=== PATIENT | female | born 1950 | race Caucasian/White ===

== ENCOUNTER → 2018-03-29 | Outpatient (CLI) | payer MEDICARE, OTHER | END | disposition home or self-care (01) | LOC: KCIC MRI 11:45 | DX: S46.012A Strain of muscle(s) and tendon(s) of the rotator cuff of left shoulder, initial encounter (principal); X58.XXXA Exposure to other specified factors, initial encounter; Y93.89 Activity, other specified; Y92.89 Other specified places as the place of occurrence of the external cause; Y99.8 Other external cause status | CPT/HCPCS: 73221 ==

== ENCOUNTER → 2018-12-09 | Outpatient (CLI) | payer MEDICARE, OTHER ==
--- NOTE | 2018-12-09 14:03 | KCIC ---
MR of the left shoulder Indication: Left shoulder pain after rotator cuff repair April 21, 2018. Shoulder pops.. Comparison: None are available. Technique: Standard multiplanar sequences are obtained. Findings: Artifact: No significant image degradation. Acromioclavicular joint: Degenerative changes, with small undersurface osteophytes. Rotator cuff: * Supraspinatus-infraspinatus tendon: There has been prior rotator cuff repair with anchor screws at the humeral head. Full-thickness defect of the supraspinatus tendon measures 10 mm AP diameter by 15 mm wide. * Subscapularis tendon: Intact * Muscle bulk: Mild volume loss * Subacromial subdeltoid bursa: Trace effusion. Fluid: No significant glenohumeral effusion. Glenohumeral cartilage: No acute defect or advanced DJD. Labrum: Tear of the posterosuperior labrum. Biceps tendon: Intact Bones: No lesion or acute fracture. Soft tissue: No acute findings.. Impression: 1. Full-thickness tear of the supraspinatus tendon at the critical zone. Measures 10 x 15 mm. 2. Posterosuperior labral tear. Electronically signed by: Ab Stephenson MD (12/09/2018 1:57 PM) [id number]
== END | disposition home or self-care (01) ==
LOC: KCIC MRI 11:28
PROVIDERS: ATTEND Orthopaedic Surgery
DX: S43.492A Other sprain of left shoulder joint, initial encounter (principal); M75.102 Unspecified rotator cuff tear or rupture of left shoulder, not specified as traumatic; M25.712 Osteophyte, left shoulder; X58.XXXA Exposure to other specified factors, initial encounter; Y93.89 Activity, other specified; Y92.89 Other specified places as the place of occurrence of the external cause; Y99.8 Other external cause status
CPT/HCPCS: 73221

== ENCOUNTER → 2021-11-26 | Outpatient (CLI) | payer MEDICARE, OTHER ==
--- NOTE | 2021-11-26 12:17 | KCIC ---
EXAM: MRI RIGHT SHOULDER WITHOUT CONTRAST INDICATION: Chronic right shoulder pain, rotator cuff tear. Old injury 30 years ago. COMPARISON: None TECHNIQUE: Multiplanar, multisequence imaging of the right shoulder without contrast. FINDINGS: ROTATOR CUFF: The supraspinatus tendon is diffusely thinned, greatest anteriorly where there is high- grade deep partial-thickness articular and bursal sided tearing and a suspected full-thickness compon ent far anteriorly. Milder partial thickness articular sided tearing extends throughout the posterior supraspinatus tendon and into the anterior infraspinatus tendon. There is mild infraspinatus tendino damian. Anterior supraspinatus tendon fibers are mildly retracted to the mid humeral head. The subscap ularis and teres minor tendons are intact. LABRUM: There is degenerative superior and posterior super ior labral tearing.. BICEPS TENDON: There is intra-articular biceps tendinopathy with a longitudinal split tear as it ente rs the groove. ACROMIOCLAVICULAR JOINT: Mild acromioclavicular degenerative joint disease with subchondral cysts and edema. Mild capsular hypertrophy.. GLENOHUMERAL JOINT: No full-thickness cartilage defects. Alignment is normal. Marrow signal is normal . OTHER: Large joint effusion and fluid in the subacromial-subdeltoid bursa. IMPRESSION: 1. High-grade tear of the anterior supraspinatus tendon with suspected small full-thickness component far anteriorly. Milder partial thickness tearing of the posterior supraspinatus tendon and anterior infraspinatus tendon. 2. Tendinopathy and longitudinal split tear of the biceps tendon. Degenerative labral tear. 3. Joint effusion and fluid in the subacromial subdeltoid bursa. Electronically signed by: Kirsten Keith MD (11/26/2021 12:14 PM) [id number]
== END ==
LOC: KCIC MRI 10:03
PROVIDERS: ATTEND Orthopaedic Surgery
DX: S46.211A Strain of muscle, fascia and tendon of other parts of biceps, right arm, initial encounter (principal); S43.491A Other sprain of right shoulder joint, initial encounter; M19.011 Primary osteoarthritis, right shoulder; M75.121 Complete rotator cuff tear or rupture of right shoulder, not specified as traumatic; M25.411 Effusion, right shoulder; M75.51 Bursitis of right shoulder; X58.XXXA Exposure to other specified factors, initial encounter; Y93.89 Activity, other specified; Y92.89 Other specified places as the place of occurrence of the external cause; Y99.8 Other external cause status
CPT/HCPCS: 73221

== ENCOUNTER → 2022-04-15 | Outpatient (CLI) | payer MEDICARE ==
--- NOTE | 2022-04-15 12:29 | RAD ---
EXAMINATION: MRI RIGHT SHOULDER WITHOUT IV CONTRAST CLINICAL HISTORY: Right shoulder pain. History of rotator cuff repair. TECHNIQUE: Multiplanar multisequential images obtained through the shoulder without intravenous contr ast. COMPARISON: 11/26/2021 FINDINGS: TENDONS: Postoperative changes related to interval rotator cuff repair with tendon anchors in the gre ater tuberosity and multifocal susceptibility artifact along the superolateral shoulder. - Supraspinatus: Degree of susceptibility artifact along the course of the tendon limits evaluation, however, findings are suspicious for recurrent full-thickness tearing, especially along the anterior tendon. Some thin residual fibers with increased signal may remain intact. - Infraspinatus: Degree of susceptibility artifact near the tendon attachment limits evaluation, barnard yosi, there is no definitive evidence of full-thickness tear. Mild to moderate tendinosis. - Subscapularis: Partial thickness tearing in the superior fibers at the attachment. - Teres Minor: Intact. - Biceps Tendon: Medially perched in the proximal intertubercular groove with longitudinal split tear ing and tendinosis involving the intra-articular portion of the tendon. MUSCLES: Muscle bulk and signal intensity are within normal limits. LABRUM: Degenerative tearing in the superior and anterior inferior labrum. GLENOHUMERAL JOINT: - Joint Fluid: No significant joint effusion. - Cartilage: Within normal limits. ACROMIOCLAVICULAR JOINT: Mild to moderate degenerative changes. BONES/MARROW: Questionable small remote fractures along the posterior inferior greater tuberosity, be st appreciated on series [id number]), possibly postoperative defects. Interval acromioplasty. OTHER: Thickening and fluid in the subacromial/subdeltoid bursa. IMPRESSION: Interval rotator cuff repair with prominent multifocal susceptibility artifact limiting evaluation. Findings suspicious for recurrent full-thickness tearing in the supraspinatus tendon as described. No definite full-thickness infraspinatus tendon tear. Partial-thickness subscapularis tendon tear with medially perched biceps tendon and split tearing and tendinosis in the intra-articular biceps tendon. Questionable small remote fractures versus postoperative defects in the greater tuberosity. Electronically signed by: Amador Renee DO (04/15/2022 12:27 PM) [id number]
== END ==
LOC: MRI 08:32
PROVIDERS: ATTEND Orthopaedic Surgery
DX: S46.811A Strain of other muscles, fascia and tendons at shoulder and upper arm level, right arm, initial encounter (principal); S43.431A Superior glenoid labrum lesion of right shoulder, initial encounter; M19.011 Primary osteoarthritis, right shoulder; M77.8 Other enthesopathies, not elsewhere classified; Z98.890 Other specified postprocedural states; X58.XXXA Exposure to other specified factors, initial encounter; Y93.89 Activity, other specified; Y92.89 Other specified places as the place of occurrence of the external cause; Y99.8 Other external cause status
CPT/HCPCS: 73221